=== PATIENT | male | born 1960 | race Caucasian/White ===

== ENCOUNTER 2017-04-25 10:01 | Day surgery (SDC) | payer OTHER, BC ==
[~2017-04-25] VITALS: Ht 175.3 cm; Wt 98.9 kg
[~2017-04-25 10:01] MED LIST: CEPH500 PO; FLAX PO; GLIP5 PO; Glucophage1000 MG PO; INSULANPEN SC; LISI20 PO; MAGNESIUM250 MG PO; METO25; Multiple Vitam1 EAC1 PO; Omeprazole20 M1; POTASSIUM99 MG PO
== END 2017-04-25 15:05 | disposition home or self-care (01) ==
LOC: ORSCSDS 10:01
PROVIDERS: Podiatrist Foot & Ankle Surgery
PROC: 0LQW0ZZ Repair Left Foot Tendon, Open Approach (ICD-10-PCS; principal; 2017-04-25 11:30)
DX: M66.372 Spontaneous rupture of flexor tendons, left ankle and foot (principal); I10 Essential (primary) hypertension; E11.9 Type 2 diabetes mellitus without complications; G47.33 Obstructive sleep apnea (adult) (pediatric); Z87.891 Personal history of nicotine dependence; Z79.899 Other long term (current) drug therapy
CPT/HCPCS: 82947; J0171; J0330; J0690; J1815; J1817; J2250; J2405; J3010; J7120

== ENCOUNTER 2018-05-04 11:13 | Day surgery (SDC) | payer OTHER, BC ==
[~2018-05-04] VITALS: Ht 172.7 cm; Wt 98.8 kg
[~2018-05-04 11:13] MED LIST changes: +GABA300 PO; +Lovastatin40 MG PO
--- NOTE | 2018-05-04 12:12 | NUR ---
05/04/18 1212 Amber Banda PT EDUCATION COMPLETED WITH PT AND . BOTH DENY QUESTIONS AT THIS TIME. CALL LIGHT IN REACH, BED IN LOWEST POSITION
--- NOTE | 2018-05-04 12:58 | NUR ---
05/04/18 1258 Jony Santo A LARGE ABRASION NOTED ON FRONT OF RIGHT CALF IN PRE OP. DR TERAN AWARE.
--- NOTE | 2018-05-04 14:10 | NUR ---
05/04/18 1410 Stacy Ch VSS. PT TOLERATING PO INTAKE WELL. PT C/O 10/14 PAIN ON RIGHT ANKLE (RIGHT SIDE AND UNDERNEATH) PRIMARILY. MEDICATED PER ORDERS. WILL GIVE PO MEDS ONCE PT FINISHES HIS PO COOKIES. DRESSING CDI. RT LIMB ELEVATED WITH ICE PACK UNDER RIGHT CALF. AT CHAIRSIDE.
== END 2018-05-04 14:40 | disposition home or self-care (01) ==
LOC: ORSCSDS 11:13
PROVIDERS: Podiatrist Foot & Ankle Surgery
PROC: 0MQQ4ZZ Repair Right Ankle Bursa and Ligament, Percutaneous Endoscopic Approach (ICD-10-PCS; principal; 2018-05-04 12:30)
PROC: 0SBF4ZZ Excision of Right Ankle Joint, Percutaneous Endoscopic Approach (ICD-10-PCS; principal; 2018-05-04 12:30)
DX: S93.491A Sprain of other ligament of right ankle, initial encounter (principal); M25.371 Other instability, right ankle; E11.9 Type 2 diabetes mellitus without complications; I10 Essential (primary) hypertension; E78.00 Pure hypercholesterolemia, unspecified; Z79.4 Long term (current) use of insulin; Z79.899 Other long term (current) drug therapy
CPT/HCPCS: 36415; 82607; 82746; 82947; C1713; J0171; J0690; J1100; J1885; J2250; J2405; J3010; J7120

== ENCOUNTER 2018-08-07 08:29 | Day surgery (SDC) | payer BC, OTHER ==
[~2018-08-07] VITALS: Ht 175.3 cm; Wt 100.4 kg
[2018-08-07] MEDS ORDERED: JARDIANCE25 MG PO (09:08)
[2018-08-07] MEDS ORDERED: TRULICITY1.5 MG/0.5 SC (09:09)
== END 2018-08-07 10:25 | disposition home or self-care (01) ==
LOC: ORSCSDS 08:29
PROVIDERS: Internal Medicine Gastroenterology
PROC: 0DBM8ZX Excision of Descending Colon, Via Natural or Artificial Opening Endoscopic, Diagnostic (ICD-10-PCS; principal; 2018-08-07 09:45)
PROC: 0DBP8ZX Excision of Rectum, Via Natural or Artificial Opening Endoscopic, Diagnostic (ICD-10-PCS; principal; 2018-08-07 09:45)
PROC: 0DBL8ZX Excision of Transverse Colon, Via Natural or Artificial Opening Endoscopic, Diagnostic (ICD-10-PCS; principal; 2018-08-07 09:45)
DX: Z85.038 Personal history of other malignant neoplasm of large intestine (principal); Z12.11 Encounter for screening for malignant neoplasm of colon; D12.4 Benign neoplasm of descending colon; D12.3 Benign neoplasm of transverse colon; K62.1 Rectal polyp; K57.30 Diverticulosis of large intestine without perforation or abscess without bleeding; K64.8 Other hemorrhoids; I10 Essential (primary) hypertension; G47.33 Obstructive sleep apnea (adult) (pediatric); E11.9 Type 2 diabetes mellitus without complications; Z79.899 Other long term (current) drug therapy
CPT/HCPCS: 82947; 88305; J2250; J2704; J7120

== ENCOUNTER 2018-08-12 14:08 | Emergency (ER) | payer BC, OTHER ==
[~2018-08-12] VITALS: Ht 172.7 cm; Wt 99.3 kg
[~2018-08-12 14:08] MED LIST changes: +JARDIANCE25 MG PO; +TRULICITY1.5 MG/0.5 SC
[2018-08-12 15:03] LABS: Source, Urine Clean Catch
[2018-08-12 15:35] LABS: Bilirubin, Urine Neg (Neg); Blood, Urine 1+ (Neg); Glucose Qualitative, Urine 4+ (Neg); Ketones, Urine 4+ (Neg); Leukocyte Esterase, Urine Neg (Neg); Nitrite, Urine Neg (Neg); Protein, Urine 2+ (Neg); Specific Gravity, Urine 1.025 (1.003-1.022); Urobilinogen, Urine NORM (Normal)
[2018-08-12 15:37] LABS: Appearance, Urine Hazy (Clear); Color, Urine Yellow (P-Yellow)
[2018-08-12 15:38] LABS: Squamous Epithelial Cells Rare /hpf (Few)
[2018-08-12 15:39] LABS: Bacteria Rare /hpf; Red Blood Cells, Urine 0-2 /hpf (0-2); White Blood Cells, Urine 0-2 /hpf (0-5)
[2018-08-12 16:08] LABS: BASOPHILS ABSOLUTE AUTO 0.05 K/mm3 (0.00-0.23); BASOPHILS PERCENT AUTO 1 % (0-2); EOSINOPHILS PERCENT AUTO 3 % (0-6); Hematocrit 47.9 % (37.0-53.0); IMMATURE GRAN ABSOLUTE AUTO 0.02 K/mm3 (0.00-0.10); IMMATURE GRAN PERCENT AUTO 0 % (0-1); LYMPHOCYTES ABSOLUTE AUTO 1.97 K/mm3 (0.84-5.20); LYMPHOCYTES PERCENT AUTO 27 % (21-46); MONOCYTES ABSOLUTE AUTO 0.57 K/mm3 (0.16-1.47); MONOCYTES PERCENT AUTO 8 % (4-13); Mean Corpuscular HGB 30.5 pg (26.0-34.0); Mean Corpuscular HGB Conc 33.4 g/dL (31.5-36.5); Mean Corpuscular Volume 91 fL (80-100); NEUTROPHILS ABSOLUTE AUTO 4.55 K/mm3 (1.96-9.15); NEUTROPHILS PERCENT AUTO 62 % (41-73); Platelet Count 141 K/mm3 (150-400); RDW Coefficient Variation 12.6 % (11.7-14.2); RDW Standard Deviation 42.1 fL (35.1-46.3); Red Blood Cell Count 5.24 M/mm3 (4.30-5.90); White Blood Cell Count 7.36 K/mm3 (4.00-11.30)
[2018-08-12 16:37] LABS: Alanine Aminotransfer (ALT/SGP 53 U/L (12-78); Albumin, Blood 4.2 g/dL (3.4-5.0); Alk Phos 62 U/L (50-136); Anion Gap 7 mmol/L (6-16); Aspartate Aminotrans (AST/SGOT 20 U/L (12-37); Bilirubin, Total 0.7 mg/dL (0.1-1.0); Blood Urea Nitrogen 29 mg/dL (8-24); Bun/Creatinine Ratio 37.5 (12.0-20.0); CO2, Blood 27 mmol/L (21-32); Calcium, Blood 9.9 mg/dL (8.5-10.1); Chloride, Blood 105 mmol/L (98-108); Creatinine, Blood 0.77 mg/dL (0.60-1.20); Globulin, Blood 4.1 g/dL (2.2-4.0); Glomerular Filtration Rate >60 (60-); Glucose, Blood 106 mg/dL (70-99); Potassium, Blood 4.3 mmol/L (3.5-5.5); Sodium, Blood 139 mmol/L (136-145); Total Protein, Blood 8.3 g/dL (6.4-8.2)
== END 2018-08-12 17:39 | disposition home or self-care (01) ==
LOC: ER 14:08
PROVIDERS: Physician Assistant
DX: G89.18 Other acute postprocedural pain (principal); R10.9 Unspecified abdominal pain; Z79.899 Other long term (current) drug therapy; Z79.4 Long term (current) use of insulin; Z87.891 Personal history of nicotine dependence
CPT/HCPCS: 36415; 74177; 80053; 81001; 83690; 85025; 99284-25; Q9967

== ENCOUNTER 2019-05-24 22:05 | Inpatient (IN) | payer BC, OTHER ==
[~2019-05-24] VITALS: Ht 172.7 cm; Wt 96.3 kg
[~2019-05-24 22:05] MED LIST changes: -METO25; +METO25 PO; +Medi-Meclizine25 MG PO; +PROM25 PO
[2019-05-24 22:36] LABS: BASOPHILS ABSOLUTE AUTO 0.03 K/mm3 (0.00-0.23); BASOPHILS PERCENT AUTO 0 % (0-2); EOSINOPHILS PERCENT AUTO 3 % (0-6); Hematocrit 44.8 % (37.0-53.0); Hemoglobin 14.9 g/dL (13.5-17.5); IMMATURE GRAN ABSOLUTE AUTO 0.04 K/mm3 (0.00-0.10); IMMATURE GRAN PERCENT AUTO 0 % (0-1); LYMPHOCYTES ABSOLUTE AUTO 0.94 K/mm3 (0.84-5.20); LYMPHOCYTES PERCENT AUTO 9 % (21-46); MONOCYTES ABSOLUTE AUTO 0.61 K/mm3 (0.16-1.47); MONOCYTES PERCENT AUTO 6 % (4-13); Mean Corpuscular HGB 29.6 pg (26.0-34.0); Mean Corpuscular HGB Conc 33.3 g/dL (31.5-36.5); Mean Corpuscular Volume 89 fL (80-100); Mean Platelet Volume 12.5 fL (9.1-12.4); NEUTROPHILS ABSOLUTE AUTO 8.73 K/mm3 (1.96-9.15); NEUTROPHILS PERCENT AUTO 82 % (41-73); Platelet Count 137 K/mm3 (150-400); RDW Coefficient Variation 12.7 % (11.7-14.2); RDW Standard Deviation 41.1 fL (35.1-46.3); Red Blood Cell Count 5.04 M/mm3 (4.30-5.90); White Blood Cell Count 10.65 K/mm3 (4.00-11.30)
[2019-05-24] MEDS ORDERED: TAMS.4ER PO (22:53)
[2019-05-24] MEDS ORDERED: TRESIBA100 UNIT/1 SC (22:54)
[2019-05-24 22:55] LABS: Alanine Aminotransfer (ALT/SGP 59 U/L (12-78); Albumin, Blood 3.9 g/dL (3.4-5.0); Alk Phos 55 U/L (50-136); Anion Gap 8 mmol/L (6-16); Aspartate Aminotrans (AST/SGOT 32 U/L (12-37); Bilirubin, Total 0.7 mg/dL (0.1-1.0); Blood Urea Nitrogen 18 mg/dL (8-24); Bun/Creatinine Ratio 31.8 (12.0-20.0); CO2, Blood 28 mmol/L (21-32); Calcium, Blood 9.2 mg/dL (8.5-10.1); Chloride, Blood 104 mmol/L (98-108); Creatinine, Blood 0.57 mg/dL (0.60-1.20); Globulin, Blood 3.8 g/dL (2.2-4.0); Glomerular Filtration Rate >60 (60-); Glucose, Blood 198 mg/dL (70-99); Potassium, Blood 4.1 mmol/L (3.5-5.5); Sodium, Blood 140 mmol/L (136-145); Total Protein, Blood 7.7 g/dL (6.4-8.2); Troponin I 0.027 ng/mL (0.000-0.040)
--- NOTE | 2019-05-25 03:00 | NUR ---
ADMIT NOTE: ADMIT 49 YO MALE TO ICU 9 PCU OBS STATUS BY [facility] VIA ER.TO HOSPITALIST DR PEDRAZA SERVICE . TRANSFER TO BED GAIT STEADY MONITOR PLACED SHOWING SINUS TADCH. HEART RATE 120'S. DENIES CHEST PAIN. LUNG SOUNDS CLEAR UPPER LOBES WITH DECREASED SOUNDS IN THE BASES HARSH NONPROODUCTIVE COUGH REQUEST UDN TX. DR MCCAIN NOTIFIED. ORDERS NOTED. ABDOMEN SOFT WITH BOWEL SOUNDS FOUR QUADS VOIDS WEI URINE PER URINAL GAIT STEADY. PEDAL PULSES PRESENT NO EDEMA NOTED. BLOOD CONSENT AND RELEASE OF INFORMATION COMPLETED. CONTINUE TO MONITOR AND REPORT CHANGE IN PATIENT CONDITION.
[2019-05-25 05:57] LABS: Hematocrit 43.3 % (37.0-53.0); Mean Corpuscular HGB 28.7 pg (26.0-34.0); Mean Corpuscular HGB Conc 32.3 g/dL (31.5-36.5); Mean Corpuscular Volume 89 fL (80-100); Mean Platelet Volume 12.9 fL (9.1-12.4); Platelet Count 109 K/mm3 (150-400); RDW Coefficient Variation 12.6 % (11.7-14.2); RDW Standard Deviation 41.3 fL (35.1-46.3); Red Blood Cell Count 4.87 M/mm3 (4.30-5.90); White Blood Cell Count 7.29 K/mm3 (4.00-11.30)
[2019-05-25 06:19] LABS: Alanine Aminotransfer (ALT/SGP 60 U/L (12-78); Albumin, Blood 3.7 g/dL (3.4-5.0); Albumin/Globulin Ratio 1.1 (0.8-1.8); Alk Phos 46 U/L (50-136); Anion Gap 6 mmol/L (6-16); Aspartate Aminotrans (AST/SGOT 33 U/L (12-37); Bilirubin, Total 1.1 mg/dL (0.1-1.0); Blood Urea Nitrogen 14 mg/dL (8-24); Bun/Creatinine Ratio 27.2 (12.0-20.0); CO2, Blood 30 mmol/L (21-32); Calcium, Blood 9.1 mg/dL (8.5-10.1); Chloride, Blood 105 mmol/L (98-108); Creatinine, Blood 0.52 mg/dL (0.60-1.20); Globulin, Blood 3.3 g/dL (2.2-4.0); Glomerular Filtration Rate >60 (60-); Glucose, Blood 189 mg/dL (70-99); Potassium, Blood 4.1 mmol/L (3.5-5.5); Sodium, Blood 141 mmol/L (136-145)
[2019-05-25 06:22] LABS: Troponin I 0.048 ng/mL (0.000-0.040)
--- NOTE | 2019-05-25 06:26 | NUR ---
SHIFAT SUMMARY: RESTS QUIETLY WHEN UNDISTURBED. MONITOR INTACT SHOWING SINUS TACH. HEART RATE 100'S-120'S. FREQ NON PRODUCTIVE HARSH COUGH. ABOMEN SOFT WITH BOWELSOUNDS FOUR QUADS. VOIDS WEI URINE PER URIANAL GAIT STEADY IN ROOM . CONTINUE TO MONITOR AND REPORT CHANGE IN PATIENT CONDITION. DISCUSSED BEDSIDE REPORT WITH PT STATES "JUST LET ME SLEEP IF I AM ASLEEP"
[2019-05-25 07:36] LABS: Adenovirus Not Detected (NOT DETECT); Bordetella pertussis Not Detected (NOT DETECT); Chlamydophila pneumoniae Not Detected (NOT DETECT); Coronavirus 229E Not Detected (NOT DETECT); Coronavirus HKU1 Not Detected (NOT DETECT); Coronavirus NL63 Not Detected (NOT DETECT); Coronavirus OC43 Not Detected (NOT DETECT); Human Metapneumovirus Not Detected (NOT DETECT); Human Rhinovirus/Enterovirus Not Detected (NOT DETECT); Influenza A Not Detected (NOT DETECT); Influenza A/2009-H1 Detected (NOT DETECT); Influenza A/H1 Not Detected (NOT DETECT); Influenza A/H3 Not Detected (NOT DETECT); Influenza B Not Detected (NOT DETECT); Mycoplasma pneumoniae Not Detected (NOT DETECT); Parainfluenza Virus 1 Not Detected (NOT DETECT); Parainfluenza Virus 2 Not Detected (NOT DETECT); Parainfluenza Virus 3 Not Detected (NOT DETECT); Parainfluenza Virus 4 Not Detected (NOT DETECT); Respiratory Syncytial Virus Not Detected (NOT DETECT)
--- NOTE | 2019-05-25 12:00 | NUR ---
PT UPDATE PT CALM AND COOPERATIVE AND FOLLOWING ALL COMMANDS AND SALCIDO. VSS, TELE REMAINS IN NSR, PALP PULSES T/O, RA WITH SATS IN MID 90S. COURSE AND DIM BILAT WITH LOUD STRONG NON PROD COUGH, NO S/S OF RESP DISTRESS. PT AMBULATORY TO BATHROOM AND USES URINAL WITH DARK CLEAR WEI URINE. WILL CONT TO MONITOR AND D/C TO HOME TOMM PER MD ORDER.
[2019-05-25 14:14] LABS: Troponin I 0.073 ng/mL (0.000-0.040)
[2019-05-25 14:29] LABS: Creatine Kinase MB 10.5 ng/mL (0.0-3.6); Creatine Kinase MB Index 2.1 (0.0-4.0)
--- NOTE | 2019-05-25 20:00 | NUR ---
PATIENT RESTING QUIETLY IN BED AWAKENS TO SLIGHT STIMULI. WOODROW PAIN AT THIS TIME, OCCASIONAL HARSH NONPRODUCTIVE COUGH. OXYGEN 2L/NC
--- NOTE | 2019-05-25 22:57 | NUR ---
PATIENT CONTINUES TO SLEEP WHEN UNDISTURBED, AT TIMES UP TO TOILET WITHOUT DIFFICULTY. TAKING PO MEDICATIONS WITHOUT DIFFICULTY. PATIENT VERBALIZED THAT HE IS READY TO GO HOME.
--- NOTE | 2019-05-26 04:52 | NUR ---
PATIENT AWAKE, C/O FEELING IF HE CAN'T GET A DEEP BREATH. LUNG SOUNDS REMAIN DECREASED T/O. RT CALLED AND UDN TX GIVEN.
--- NOTE | 2019-05-26 06:43 | NUR ---
SUMMARY PATIENT VERBALIZED HE IS FEELING BETTER AND IS WANTING TO GO HOME AND SLEEP IN HIS OWN BED. VERBALIZED THAT HAD GOOD RELIEF OF SOB WITH UDN TREATMENT. UP IN ROOM WITHOUT DIFFICULTY.
--- NOTE | 2019-05-26 07:44 | NUR ---
ASSUMED CARE: RECEIVED BEDSIDE REPORT FROM NOC RN. PT UP IN ROOM AT THE TOILET INDEPENDENTLY. PT DENIES PAIN AT THIS TIME. NO SHORTNESS OF BREATH OR COUGHING NOTED. NO RESPRATORY DISTRESS NOTED. WILL CONTINUE TO MONITOR AND ASSESS FURTHER. CALL LIGHT IN REACH.
--- NOTE | 2019-05-26 08:28 | NUR ---
OXYGEN NEEDS: PT HAS BEEN ON 2L O2 VIA NC T/O THE NIGHT SATTING >90%. TOOK PT OFF NC IN PREPARATION OF DISCHARGE AND PT DESAT DOWN TO 86% AT THE LOWEST PT WAS UNABLE TO BRING HIS O2 SATS BACK UP WITHOUT PLACING HIM BACK ON O2. LUNG SOUNDS ARE VERY DIMINISHED T/O.
--- NOTE | 2019-05-26 17:24 | NUR ---
SHIFT SUMMARY: PT HAS BEEN RESTING OFF AND ON T/O THE DAY. HE WAS ABLE TO TAKE A SHOWER WITH O2 RUNNING WHILE HE SHOWERED. PT TAKEN OFF OF O2 FOR A SHORT TIME, BUT PT WAS UNABLE TO TOLLERATE AND KEEP HIS O2 SATURATIONS >90%. PT HAS HAD A FEW EPPISODES OF COUGHING, COUGH MED GIVEN PER ORDERS. CALL LIGHT IN REACH PT INDEPENDENT IN THE ROOM.
--- NOTE | 2019-05-26 18:41 | NUR ---
INSULIN: CALLED AND NOTIFIED [facility]. RECEIVED ORDER TO INCREASED SLIDING SCALE TO MED.
--- NOTE | 2019-05-26 19:24 | NUR ---
PT ARRIVED TO ROOM VIA WHEELCHAIR FROM ICU AT 1850. PT AMBULATED SELF TO BED. STATES NO DISTRESS. CALL LITE IN REACH, BED IN LOW POSITION, CALL LITE IN REACH, CALLS APPROP
[2019-05-27] MEDS ORDERED: TESSALON PERLE100 MG PO (11:39)
[2019-05-27] MEDS ORDERED: PRED10 PO (11:44)
[2019-05-27] MEDS ORDERED: OSEL75CA PO (11:45)
[2019-05-27] MEDS ORDERED: Ventolin/Prove6.7 GM INH (11:47)
--- NOTE | 2019-05-27 12:15 | NUR ---
PATIENT DC'D TO HOME WITH FAMILY. VSS, ON RA. RX MEDICATIONS FAXED TO [facility]. DC INSTRUCTIONS AND EDUCATIONS DISCUSSED WITH PATIENT AND COPY PROVIDED. PATIENT DENIES ANY FURTHER QUESTIONS OR CONCERNS.
== END 2019-05-27 12:13 | disposition home or self-care (01) | DRG 193 ==
LOC: ER 22:05 → ICUW 22:06 → ER 05-25 00:46 → ICUW 05-25 00:46 → ERHOLD 05-25 00:46 → ICUW 05-25 03:00 → ERHOLD 05-25 03:00 → ICUW 05-25 03:01 → MEDS 05-26 18:55
PROVIDERS: Emergency Medicine; ADMIT Internal Medicine
DX: J10.1 Influenza due to other identified influenza virus with other respiratory manifestations (principal); J96.01 Acute respiratory failure with hypoxia; J98.59 Other diseases of mediastinum, not elsewhere classified; J45.901 Unspecified asthma with (acute) exacerbation; I24.8 Other forms of acute ischemic heart disease; E11.9 Type 2 diabetes mellitus without complications; J20.9 Acute bronchitis, unspecified; K21.9 Gastro-esophageal reflux disease without esophagitis; I10 Essential (primary) hypertension; N40.0 Benign prostatic hyperplasia without lower urinary tract symptoms; G62.9 Polyneuropathy, unspecified; E66.9 Obesity, unspecified; Z79.4 Long term (current) use of insulin; Z68.33 Body mass index [BMI] 33.0-33.9, adult
CPT/HCPCS: 0099U; 36415; 71045; 71260; 80053; 82550; 82553; 82947; 83605; 83690; 83880; 84145; 84484; 85025; 85027; 87040; 93005; 93010; 93306; 94640; 94760; 96372; 96374; 96376; 99285-25; A9270-GY; G0378; J1650; J2250; J2930; Q9967

== ENCOUNTER → 2022-04-10 | Outpatient (CLI) | payer OTHER ==
[~2022-04-10] MED LIST changes: +OSEL75CA PO; +PRED10 PO; +TAMS.4ER PO; +TESSALON PERLE100 MG PO; +TRESIBA100 UNIT/1 SC; +Ventolin/Prove6.7 GM INH
[2022-04-10 08:40] LABS: BASOPHILS ABSOLUTE AUTO 0.02 K/mm3 (0.00-0.23); BASOPHILS PERCENT AUTO 0 % (0-2); EOSINOPHILS ABSOLUTE AUTO 0.11 K/mm3 (0.00-0.68); EOSINOPHILS PERCENT AUTO 2 % (0-6); Hematocrit 46.1 % (37.0-53.0); Hemoglobin 15.4 g/dL (13.5-17.5); IMMATURE GRAN ABSOLUTE AUTO 0.03 K/mm3 (0.00-0.10); IMMATURE GRAN PERCENT AUTO 1 % (0-1); LYMPHOCYTES ABSOLUTE AUTO 1.05 K/mm3 (0.84-5.20); LYMPHOCYTES PERCENT AUTO 17 % (21-46); MONOCYTES ABSOLUTE AUTO 0.48 K/mm3 (0.16-1.47); MONOCYTES PERCENT AUTO 8 % (4-13); Mean Corpuscular HGB 30.1 pg (26.0-34.0); Mean Corpuscular HGB Conc 33.4 g/dL (31.5-36.5); Mean Corpuscular Volume 90 fL (80-100); Mean Platelet Volume 12.9 fL (9.1-12.4); NEUTROPHILS ABSOLUTE AUTO 4.52 K/mm3 (1.96-9.15); NEUTROPHILS PERCENT AUTO 73 % (41-73); Platelet Count 123 K/mm3 (150-400); RDW Coefficient Variation 13.2 % (11.7-14.2); RDW Standard Deviation 43.5 fL (35.1-46.3); Red Blood Cell Count 5.11 M/mm3 (4.30-5.90); White Blood Cell Count 6.21 K/mm3 (4.00-11.30)
[2022-04-10 08:46] LABS: Bun/Creatinine Ratio 19.5 (12.0-20.0); Calcium, Blood 9.2 mg/dL (8.5-10.1); Creatinine, Blood 0.82 mg/dL (0.60-1.20); Potassium, Blood 4.2 mmol/L (3.5-5.5)
== END | disposition home or self-care (01) ==
LOC: LAB SHORT 08:36
PROVIDERS: Physician Assistant Surgical
DX: R06.00 Dyspnea, unspecified (principal)
CPT/HCPCS: 80048; 83880; 84484; 85025; 85379

== ENCOUNTER 2022-12-03 11:18 | Day surgery (SDC) | payer BC, MEDICARE ==
[~2022-12-03] VITALS: Ht 152.4 cm; Wt 105.7 kg
[2022-12-03] MEDS ORDERED: PIOG15 (11:46)
[2022-12-03] MEDS ORDERED: ASPI81CH (11:46)
[2022-12-03] MEDS ORDERED: GLIM2 (11:46)
[2022-12-03] MEDS ORDERED: GABA100 (11:46)
[2022-12-03] MEDS ORDERED: Crestor20 MG (11:47)
[2022-12-03 14:54] VITALS: BP 133/68
== END 2022-12-03 13:05 | disposition home or self-care (01) ==
LOC: ORSCSDS 11:18
PROVIDERS: Internal Medicine Gastroenterology
PROC: 0DBM8ZX Excision of Descending Colon, Via Natural or Artificial Opening Endoscopic, Diagnostic (ICD-10-PCS; principal; 2022-12-03 12:30)
PROC: 0DBK8ZX Excision of Ascending Colon, Via Natural or Artificial Opening Endoscopic, Diagnostic (ICD-10-PCS; principal; 2022-12-03 12:30)
DX: Z12.11 Encounter for screening for malignant neoplasm of colon (principal); D12.2 Benign neoplasm of ascending colon; D12.4 Benign neoplasm of descending colon; Z86.010 Personal history of colon polyps; K64.8 Other hemorrhoids; K57.30 Diverticulosis of large intestine without perforation or abscess without bleeding; E11.9 Type 2 diabetes mellitus without complications; K21.9 Gastro-esophageal reflux disease without esophagitis; R06.02 Shortness of breath; G47.33 Obstructive sleep apnea (adult) (pediatric); J44.9 Chronic obstructive pulmonary disease, unspecified; E66.01 Morbid (severe) obesity due to excess calories; F17.210 Nicotine dependence, cigarettes, uncomplicated; Z68.42 Body mass index [BMI] 45.0-49.9, adult; Z79.85 Long-term (current) use of injectable non-insulin antidiabetic drugs; Z79.82 Long term (current) use of aspirin; Z79.899 Other long term (current) drug therapy
CPT/HCPCS: 82947; 88305; J2704; J7120

== ENCOUNTER 2023-11-03 03:20 | Observation (INO) | payer BC, MEDICARE ==
[~2023-11-03] VITALS: Ht 175.3 cm; Wt 99.5 kg
[~2023-11-03 03:20] MED LIST changes: +ASPI81CH PO; +Crestor40 MG PO; +GABA100; +GLIM2; +PIOG15 PO
[2023-11-03] MEDS ORDERED: Ipratropium/Albuterol SulF 2.5-0.5MG/3 ML Amp INH ONE (03:30)
[2023-11-03] MEDS ORDERED: PredniSONE 20 MG Tab PO ONE (03:30)
[2023-11-03] MEDS ORDERED: Mag Sulfate 1 GM/D5% 100ML 100 ML IV ONE (03:30)
[2023-11-03] MEDS ORDERED: Albuterol 2.5 MG/3 ML VIAL INH SCH ×2 (03:30→05:00)
[2023-11-03 04:02] LABS: BASOPHILS ABSOLUTE AUTO 0.04 K/mm3 (0.00-0.23); BASOPHILS PERCENT AUTO 1 % (0-2); EOSINOPHILS ABSOLUTE AUTO 0.17 K/mm3 (0.00-0.68); EOSINOPHILS PERCENT AUTO 2 % (0-6); Hematocrit 42.3 % (37.0-53.0); Hemoglobin 14.4 g/dL (13.5-17.5); IMMATURE GRAN ABSOLUTE AUTO 0.04 K/mm3 (0.00-0.10); IMMATURE GRAN PERCENT AUTO 1 % (0-1); LYMPHOCYTES ABSOLUTE AUTO 0.96 K/mm3 (0.84-5.20); LYMPHOCYTES PERCENT AUTO 13 % (21-46); MONOCYTES ABSOLUTE AUTO 0.58 K/mm3 (0.16-1.47); MONOCYTES PERCENT AUTO 8 % (4-13); Mean Corpuscular HGB 29.9 pg (26.0-34.0); Mean Corpuscular Volume 88 fL (80-100); NEUTROPHILS PERCENT AUTO 77 % (41-73); Platelet Count 130 K/mm3 (150-400); RDW Coefficient Variation 12.8 % (11.7-14.2); RDW Standard Deviation 40.9 fL (35.1-46.3); Red Blood Cell Count 4.82 M/mm3 (4.30-5.90); White Blood Cell Count 7.59 K/mm3 (4.00-11.30)
[2023-11-03 04:04] LABS: Mean Platelet Volume 13.3 fL (9.1-12.4)
[2023-11-03 04:13] LABS: Albumin, Blood 3.5 g/dL (3.4-5.0); Bilirubin, Total 2.6 mg/dL (0.1-1.0); Bun/Creatinine Ratio 27.8 (12.0-20.0); Calcium, Blood 8.9 mg/dL (8.5-10.1); Creatinine, Blood 0.65 mg/dL (0.60-1.20); Globulin, Blood 3.6 g/dL (2.2-4.0); Potassium, Blood 3.7 mmol/L (3.5-5.5); Total Protein, Blood 7.1 g/dL (6.4-8.2)
[2023-11-03] MEDS ORDERED: Doxycycline Hyclate 100 MG TAB PO ONE (04:45)
[2023-11-03] MEDS ORDERED: Ondansetron HCl 2 MG / ML 2ML Vial IV PRN (05:05)
[2023-11-03] MEDS ORDERED: Ipratropium/Albuterol SulF 2.5-0.5MG/3 ML Amp INH PRN (05:10)
[2023-11-03] MEDS ORDERED: MethylPREDNISolone Sod Succ 125 MG Vial IV SCH (06:00)
[2023-11-03 06:47] LABS: Adenovirus Not Detected (NOT DETECT); Bordetella pertussis Not Detected (NOT DETECT); Chlamydophila pneumoniae Not Detected (NOT DETECT); Coronavirus 229E Not Detected (NOT DETECT); Coronavirus HKU1 Not Detected (NOT DETECT); Coronavirus NL63 Not Detected (NOT DETECT); Coronavirus OC43 Not Detected (NOT DETECT); Human Metapneumovirus Not Detected (NOT DETECT); Human Rhinovirus/Enterovirus Not Detected (NOT DETECT); Influenza A/2009-H1 Not Detected (NOT DETECT); Influenza A/H1 Not Detected (NOT DETECT); Influenza A/H3 Not Detected (NOT DETECT); Influenza B Not Detected (NOT DETECT); Mycoplasma pneumoniae Not Detected (NOT DETECT); Parainfluenza Virus 1 Not Detected (NOT DETECT); Parainfluenza Virus 2 Not Detected (NOT DETECT); Parainfluenza Virus 3 Not Detected (NOT DETECT); Parainfluenza Virus 4 Not Detected (NOT DETECT); Respiratory Syncytial Virus Not Detected (NOT DETECT); SARS-Cov-2 (COVID-19), BioFire Not Detected (NOT DETECT)
[2023-11-03] MEDS ORDERED: Enoxaparin 40 MG/0.4 ML SYR SC SCH (09:00)
[2023-11-03] MEDS ORDERED: Doxycycline Hyclate 100 MG in Dextrose 5% 250 ML IV SCH (09:00)
[2023-11-03 09:56] VITALS: BP 173/96
[2023-11-03] MEDS ORDERED: OZEMPIC2 MG/0.75 SC (10:51)
[2023-11-03] MEDS ORDERED: HYDROmorphone HCl/Pf 1MG SYR IV PRN (11:00)
[2023-11-03] MEDS ORDERED: OXYB5 PO (11:13)
[2023-11-03] MEDS ORDERED: STIOLTO RESPIMAT4 G1 INH (11:14)
[2023-11-03] MEDS ORDERED: INSULIN GL300 UNIT/2 SC (11:15)
[2023-11-03] MEDS ORDERED: OMEGA-3 FISH O1 EA21 PO (11:16)
[2023-11-03] MEDS ORDERED: Furosemide 10 MG / ML 2ML Vial IV ONE (12:00)
[2023-11-03 15:45] VITALS: BP 180/100
[2023-11-03] MEDS ORDERED: Insulin Human Lispro 100 Units/ML 3ML Syringe SC SCH (16:30)
[2023-11-03] MEDS ORDERED: HydrALAZINE HCl 20 MG / ML 1ML Vial IV PRN ×2 (16:40→18:30)
[2023-11-03 18:06] VITALS: BP 184/102
--- NOTE | 2023-11-03 18:24 | NUR ---
THIS RN CALLED TO PT ROOM DUE TO PT C/O SOB AND DIFFICULTY BREATHING OUT. MD NOTIFIED OF ABNORMAL VITAL SIGNS ALONG WITH SYMPTOMS. DR. PUGA AT BEDSIDE. PLEASE SEE NEW ORDERS.
[2023-11-03] MEDS ORDERED: Metoprolol Tartrate 1 MG/ML 5 ML VIAL IV PRN (18:30)
[2023-11-03 18:44] LABS: Base Excess Venous -2.9 mmol/L; Bicarbonate Venous 22.8 mmol/L (24.0-30.0); PCO2 Venous 30.9 mmHg (38-42); pH Blood Venous 7.44 (7.34-7.37)
--- NOTE | 2023-11-03 19:49 | NUR ---
DISCUSSED PT WITH STATION MECHANIC APPRENTICE. DR. MCCAIN NOTIFIED. AT BEDSIDE NOW. PE STUDY ORDERED RULE OUT.
[2023-11-03] MEDS ORDERED: Insulin Glargine-Yfgn 100 Unit/mL 3 ML SYR SC SCH (21:00)
[2023-11-03] MEDS ORDERED: Omega-3 Acid Ethyl Esters 1,000 MG CAP PO SCH (21:00)
[2023-11-03] MEDS ORDERED: oxyBUTYnin chloride 5 MG TAB PO SCH (21:00)
[2023-11-03] MEDS ORDERED: Gabapentin 300 MG Cap PO SCH (21:00)
[2023-11-03] MEDS ORDERED: Rosuvastatin Calcium 10 MG Tab PO SCH (21:00)
[2023-11-03] MEDS ORDERED: Metoprolol Tartrate 25 MG Tab PO SCH (21:00)
[2023-11-03] MEDS ORDERED: Ibuprofen 400 MG Tab PO PRN (22:55)
[2023-11-04 03:17] VITALS: BP 163/93
--- NOTE | 2023-11-04 05:27 | NUR ---
SHIFT SUMMARY AFTER EPISODE OF SOB AT CHANGE OF SHIFT, NO FURTHER SOB EVENTS TONIGHT. CT WAS DONE RESULTS ON CHART. TELE SR 93. GIVEN IBUPROPHEN FOR HEADACHE. BP 163/93 DID NOT QUITE HIT PARAMETER FOR PRN ANTIHYPERTENSIVE.
[2023-11-04 05:46] LABS: BASOPHILS ABSOLUTE AUTO 0.01 K/mm3 (0.00-0.23); BASOPHILS PERCENT AUTO 0 % (0-2); EOSINOPHILS PERCENT AUTO 0 % (0-6); Hematocrit 40.8 % (37.0-53.0); Hemoglobin 13.7 g/dL (13.5-17.5); IMMATURE GRAN ABSOLUTE AUTO 0.07 K/mm3 (0.00-0.10); IMMATURE GRAN PERCENT AUTO 1 % (0-1); LYMPHOCYTES ABSOLUTE AUTO 0.51 K/mm3 (0.84-5.20); LYMPHOCYTES PERCENT AUTO 6 % (21-46); MONOCYTES ABSOLUTE AUTO 0.25 K/mm3 (0.16-1.47); MONOCYTES PERCENT AUTO 3 % (4-13); Mean Corpuscular HGB 29.3 pg (26.0-34.0); Mean Corpuscular HGB Conc 33.6 g/dL (31.5-36.5); Mean Corpuscular Volume 87 fL (80-100); NEUTROPHILS ABSOLUTE AUTO 8.11 K/mm3 (1.96-9.15); NEUTROPHILS PERCENT AUTO 91 % (41-73); Platelet Count 143 K/mm3 (150-400); RDW Coefficient Variation 13.2 % (11.7-14.2); RDW Standard Deviation 41.6 fL (35.1-46.3); Red Blood Cell Count 4.67 M/mm3 (4.30-5.90); White Blood Cell Count 8.95 K/mm3 (4.00-11.30)
[2023-11-04] MEDS ORDERED: Omeprazole 20 MG CapCR PO SCH (06:00)
[2023-11-04 06:08] LABS: Albumin, Blood 3.4 g/dL (3.4-5.0); Bilirubin, Total 2.5 mg/dL (0.1-1.0); Bun/Creatinine Ratio 48.5 (12.0-20.0); Calcium, Blood 9.1 mg/dL (8.5-10.1); Creatinine, Blood 0.62 mg/dL (0.60-1.20); Globulin, Blood 3.4 g/dL (2.2-4.0); Potassium, Blood 3.9 mmol/L (3.5-5.5); Total Protein, Blood 6.8 g/dL (6.4-8.2)
[2023-11-04 07:04] VITALS: BP 151/81
[2023-11-04] MEDS ORDERED: Multivitamins/Minerals TAB PO SCH (09:00)
[2023-11-04] MEDS ORDERED: Lisinopril 20 MG Tab PO SCH (09:00)
[2023-11-04] MEDS ORDERED: Misc. Inhaler INH SCH (09:00)
[2023-11-04] MEDS ORDERED: Empagliflozin 25 MG TAB PO SCH (09:00)
[2023-11-04] MEDS ORDERED: MethylPREDNISolone Sod Succ 125 MG Vial IV SCH ×2 (09:00→21:00)
[2023-11-04] MEDS ORDERED: Aspirin 81 MG Chew PO SCH (09:00)
[2023-11-04] MEDS ORDERED: Furosemide 20 MG Tab PO SCH (11:00)
--- NOTE | 2023-11-04 14:43 | NUR ---
SHIFT SUMMARY PT AWAKE AT START OF SHIFT. ABLE TO SIT UP TO EOB AND THEN AMBULATE TO BTHRM INDEPENDENTLY. PT REPORTING THAT HE FEELS MUCH BETTER TODAY AND READY TO GO HOME IF POSSIBLE. ADMITTED FOR COPD EXAC. PT NOW ON RA. USING CPAP DURING THE NIGHT. NO O2 NEEDED. SR ON TELE. DR PUGA IN TO SEE PT AND DISCUSS PLAN OF CARE. POSSIBLE D/C TO [facility]OMEE TODAY. MEDICATIONS ADJUSTED. IN TO VISIT AT BS. DENIES FURTHER NEEDS. CALL LT IN REACH.
[2023-11-04] MEDS ORDERED: FURO20 PO (16:13)
[2023-11-04] MEDS ORDERED: PRED20 PO (16:14)
--- NOTE | 2023-11-04 17:14 | NUR ---
PT ABLE TO D/C TO HOME. DR PUGA IN TO REVIEW D/C ORDERS AND PLAN OF CARE. PT VERBALIZED UNDERSTANDING. PT AND BELONGINGS TAKEN OUT VIA W/C BY FRONT SIGHT ATTACHER WITH FAMILY AT SIDE.
[2023-11-04] MEDS ORDERED: Insulin Glargine-Yfgn 100 Unit/mL 3 ML SYR SC SCH (21:00)
[2023-11-10] MEDS ORDERED: oxyBUTYnin chloride 5 MG TAB PO SCH (09:00)
== END 2023-11-04 16:54 | disposition home or self-care (01) ==
LOC: ER 03:20 → MEDS 03:21 → ERHOLD 03:21 → MEDS 09:42
PROVIDERS: Family Medicine; Student in an Organized Health Care Education/Training Program; ADMIT Internal Medicine
DX: J44.1 Chronic obstructive pulmonary disease with (acute) exacerbation (principal); I11.0 Hypertensive heart disease with heart failure; I50.30 Unspecified diastolic (congestive) heart failure; I27.20 Pulmonary hypertension, unspecified; E11.40 Type 2 diabetes mellitus with diabetic neuropathy, unspecified; N40.0 Benign prostatic hyperplasia without lower urinary tract symptoms; J96.01 Acute respiratory failure with hypoxia; Z79.82 Long term (current) use of aspirin; Z79.899 Other long term (current) drug therapy; Z79.84 Long term (current) use of oral hypoglycemic drugs; Z79.4 Long term (current) use of insulin; Z99.81 Dependence on supplemental oxygen
CPT/HCPCS: 0202U; 36415; 71045; 71260; 80053; 82803; 82947; 83880; 84145; 85025; 93005; 93010; 94640; 94644; 94664; 94760; 94762; 96365; 96366; 96367; 96372; 96375; 96376; 99285-25; A9270; C8929; G0378; J0360; J1650; J1815; J1940; J2919; J3475; J7060; J7512; Q9957; Q9967

== ENCOUNTER 2023-11-23 16:10 | Emergency (ER) | payer BC, MEDICARE ==
[~2023-11-23] VITALS: Ht 175.3 cm; Wt 102.1 kg
[~2023-11-23 16:10] MED LIST changes: +FURO20 PO; +INSULIN GL300 UNIT/2 SC; +OMEGA-3 FISH O1 EA21 PO; +OXYB5 PO; +OZEMPIC2 MG/0.75 SC; +PRED20 PO; +STIOLTO RESPIMAT4 G1 INH
[2023-11-23 16:32] LABS: BASOPHILS ABSOLUTE AUTO 0.03 K/mm3 (0.00-0.23); BASOPHILS PERCENT AUTO 1 % (0-2); EOSINOPHILS ABSOLUTE AUTO 0.13 K/mm3 (0.00-0.68); EOSINOPHILS PERCENT AUTO 2 % (0-6); Hematocrit 39.5 % (37.0-53.0); Hemoglobin 12.8 g/dL (13.5-17.5); IMMATURE GRAN ABSOLUTE AUTO 0.02 K/mm3 (0.00-0.10); IMMATURE GRAN PERCENT AUTO 0 % (0-1); LYMPHOCYTES ABSOLUTE AUTO 1.07 K/mm3 (0.84-5.20); LYMPHOCYTES PERCENT AUTO 16 % (21-46); MONOCYTES ABSOLUTE AUTO 0.58 K/mm3 (0.16-1.47); MONOCYTES PERCENT AUTO 9 % (4-13); Mean Corpuscular HGB 28.8 pg (26.0-34.0); Mean Corpuscular HGB Conc 32.4 g/dL (31.5-36.5); Mean Corpuscular Volume 89 fL (80-100); Mean Platelet Volume 12.9 fL (9.1-12.4); NEUTROPHILS ABSOLUTE AUTO 4.69 K/mm3 (1.96-9.15); NEUTROPHILS PERCENT AUTO 72 % (41-73); Platelet Count 161 K/mm3 (150-400); RDW Coefficient Variation 13.6 % (11.7-14.2); RDW Standard Deviation 43.8 fL (35.1-46.3); Red Blood Cell Count 4.45 M/mm3 (4.30-5.90); White Blood Cell Count 6.52 K/mm3 (4.00-11.30)
[2023-11-23 17:11] LABS: Albumin, Blood 3.5 g/dL (3.4-5.0); Albumin/Globulin Ratio 1.1 (0.8-1.8); Bilirubin, Total 2.3 mg/dL (0.1-1.0); Bun/Creatinine Ratio 22.5 (12.0-20.0); Creatinine, Blood 0.93 mg/dL (0.60-1.20); Globulin, Blood 3.1 g/dL (2.2-4.0); Magnesium, Blood 1.8 mg/dL (1.6-2.4); Potassium, Blood 3.7 mmol/L (3.5-5.5); Total Protein, Blood 6.6 g/dL (6.4-8.2)
[2023-11-23 19:23] VITALS: BP 165/87
== END 2023-11-23 20:34 | disposition home or self-care (01) ==
LOC: ER 16:10
PROVIDERS: Physician Assistant
DX: R06.02 Shortness of breath (principal); R07.9 Chest pain, unspecified; K21.9 Gastro-esophageal reflux disease without esophagitis; E11.40 Type 2 diabetes mellitus with diabetic neuropathy, unspecified; J44.9 Chronic obstructive pulmonary disease, unspecified; I10 Essential (primary) hypertension; Z86.79 Personal history of other diseases of the circulatory system; Z87.891 Personal history of nicotine dependence; Z79.82 Long term (current) use of aspirin; Z79.4 Long term (current) use of insulin; Z79.52 Long term (current) use of systemic steroids; Z79.84 Long term (current) use of oral hypoglycemic drugs; Z79.899 Other long term (current) drug therapy
CPT/HCPCS: 71046; 80053; 83735; 84484; 85025; 93005; 93010; 99285-25

== ENCOUNTER 2024-07-10 16:26 | Inpatient (IN) | payer BC, MEDICARE ==
[~2024-07-10] VITALS: Ht 172.7 cm; Wt 90.6 kg
[2024-07-10 17:09] LABS: BASOPHILS ABSOLUTE AUTO 0.02 K/mm3 (0.00-0.23); BASOPHILS PERCENT AUTO 0 % (0-2); EOSINOPHILS ABSOLUTE AUTO 0.17 K/mm3 (0.00-0.68); EOSINOPHILS PERCENT AUTO 2 % (0-6); Hematocrit 35.4 % (37.0-53.0); Hemoglobin 11.5 g/dL (13.5-17.5); IMMATURE GRAN ABSOLUTE AUTO 0.04 K/mm3 (0.00-0.10); IMMATURE GRAN PERCENT AUTO 1 % (0-1); LYMPHOCYTES ABSOLUTE AUTO 0.86 K/mm3 (0.84-5.20); LYMPHOCYTES PERCENT AUTO 10 % (21-46); MONOCYTES ABSOLUTE AUTO 1.01 K/mm3 (0.16-1.47); MONOCYTES PERCENT AUTO 12 % (4-13); Mean Corpuscular HGB 27.6 pg (26.0-34.0); Mean Corpuscular HGB Conc 32.5 g/dL (31.5-36.5); Mean Corpuscular Volume 85 fL (80-100); Mean Platelet Volume 11.3 fL (9.1-12.4); NEUTROPHILS ABSOLUTE AUTO 6.16 K/mm3 (1.96-9.15); NEUTROPHILS PERCENT AUTO 75 % (41-73); Platelet Count 169 K/mm3 (150-400); RDW Coefficient Variation 18.5 % (11.7-14.2); RDW Standard Deviation 58.6 fL (35.1-46.3); Red Blood Cell Count 4.16 M/mm3 (4.30-5.90); White Blood Cell Count 8.26 K/mm3 (4.00-11.30)
[2024-07-10 17:26] LABS: Albumin, Blood 3.5 g/dL (3.4-5.0); Albumin/Globulin Ratio 0.9 (0.8-1.8); Bilirubin, Total 0.5 mg/dL (0.1-1.0); Bun/Creatinine Ratio 38.4 (12.0-20.0); Calcium, Blood 9.8 mg/dL (8.5-10.1); Creatinine, Blood 0.83 mg/dL (0.60-1.20); Globulin, Blood 3.9 g/dL (2.2-4.0); Potassium, Blood 4.6 mmol/L (3.5-5.5); Total Protein, Blood 7.4 g/dL (6.4-8.2)
[2024-07-10] MEDS ORDERED: CefTRIAXone Sodium 1,000 MG in NS 100 ML IV ONE (18:30)
[2024-07-10] MEDS ORDERED: Acetaminophen 500 MG Tab PO ONE (19:00)
[2024-07-10] MEDS ORDERED: OxyCODONE HCL 5 MG TAB PO ONE (19:00)
[2024-07-10] MEDS ORDERED: Ibuprofen 600 MG Tab PO ONE (19:00)
[2024-07-10] MEDS ORDERED: Lactated Ringer's 1,000 ML IV SCH ×3 (19:55→21:45)
[2024-07-10] MEDS ORDERED: Ketorolac Tromethamine 15mg Vial IV ONE (19:55)
[2024-07-10] MEDS ORDERED: OxyCODONE HCL 5 MG TAB PO PRN (21:35)
[2024-07-10] MEDS ORDERED: Ondansetron HCl 2 MG / ML 2ML Vial IV PRN (21:40)
[2024-07-10] MEDS ORDERED: Albuterol 2.5 MG/3 ML VIAL INH PRN (21:40)
[2024-07-10] MEDS ORDERED: Ipratropium/Albuterol SulF 2.5-0.5MG/3 ML Amp INH SCH (21:45)
[2024-07-10] MEDS ORDERED: Ketorolac Tromethamine 30mg Vial IV ONE (22:00)
[2024-07-10] MEDS ORDERED: Insulin Glargine-Yfgn 100 Unit/mL 3 ML SYR SC SCH (22:00)
[2024-07-10 23:04] VITALS: BP 115/56
[2024-07-11 01:14] LABS: Source, Urine Clean Catch
[2024-07-11 01:16] LABS: Bilirubin, Urine Neg (Neg); Blood, Urine 5+ (Neg); Glucose Qualitative, Urine 4+ (Neg); Ketones, Urine Neg (Neg); Leukocyte Esterase, Urine 3+ (Neg); Nitrite, Urine Neg (Neg); Protein, Urine 3+ (Neg); Specific Gravity, Urine 1.015 (1.003-1.022); Urobilinogen, Urine NORM (Normal)
[2024-07-11 01:19] LABS: Appearance, Urine Turbid (Clear); Color, Urine Yellow (P-Yellow)
[2024-07-11 01:22] LABS: Bacteria Many /hpf; Squamous Epithelial Cells Rare /hpf (Few); White Blood Cells, Urine TNTC /hpf (0-5)
--- NOTE | 2024-07-11 03:17 | NUR ---
SHIFT SUMMARY PATIENT HAS BEEN SLEEPING INTERMITTANTLY BETWEEN NURSING CARE SINCE BEING ADMITTED TO THE MEDICAL FLOOR. HE HAS REQUESTED PAIN MEDICATION X1 ON THIS SHIFT AND WAS MEDICATION WITH 15 MG OF IV TORADOL ORDERED BY MD. PATIENT IS ORIENTED X4. HE HAS HIS CALL LIGHT WITHIN REACH. SAFETY PRECAUTIONS ARE BEING MAINTAINED.
[2024-07-11 03:33] VITALS: BP 108/56
[2024-07-11] MEDS ORDERED: Ketorolac Tromethamine 15mg Vial IV PRN (04:00)
[2024-07-11 04:45] LABS: BASOPHILS ABSOLUTE AUTO 0.02 K/mm3 (0.00-0.23); BASOPHILS PERCENT AUTO 0 % (0-2); EOSINOPHILS ABSOLUTE AUTO 0.14 K/mm3 (0.00-0.68); EOSINOPHILS PERCENT AUTO 2 % (0-6); Hematocrit 31.2 % (37.0-53.0); Hemoglobin 10.2 g/dL (13.5-17.5); IMMATURE GRAN ABSOLUTE AUTO 0.03 K/mm3 (0.00-0.10); IMMATURE GRAN PERCENT AUTO 1 % (0-1); LYMPHOCYTES ABSOLUTE AUTO 1.07 K/mm3 (0.84-5.20); LYMPHOCYTES PERCENT AUTO 17 % (21-46); MONOCYTES ABSOLUTE AUTO 0.96 K/mm3 (0.16-1.47); MONOCYTES PERCENT AUTO 15 % (4-13); Mean Corpuscular HGB 28.3 pg (26.0-34.0); Mean Corpuscular HGB Conc 32.7 g/dL (31.5-36.5); Mean Corpuscular Volume 87 fL (80-100); Mean Platelet Volume 11.5 fL (9.1-12.4); NEUTROPHILS ABSOLUTE AUTO 4.17 K/mm3 (1.96-9.15); NEUTROPHILS PERCENT AUTO 65 % (41-73); Platelet Count 133 K/mm3 (150-400); RDW Coefficient Variation 18.6 % (11.7-14.2); RDW Standard Deviation 59.6 fL (35.1-46.3); White Blood Cell Count 6.39 K/mm3 (4.00-11.30)
[2024-07-11 05:10] LABS: Albumin/Globulin Ratio 0.8 (0.8-1.8); Bilirubin, Total 0.5 mg/dL (0.1-1.0); Bun/Creatinine Ratio 38.2 (12.0-20.0); Globulin, Blood 3.6 g/dL (2.2-4.0); Potassium, Blood 3.8 mmol/L (3.5-5.5); Total Protein, Blood 6.6 g/dL (6.4-8.2)
[2024-07-11] MEDS ORDERED: Omeprazole 20 MG CapCR PO SCH (06:00)
[2024-07-11] MEDS ORDERED: Insulin Human Lispro 100 Units/ML 3ML Syringe SC SCH (07:30)
[2024-07-11 08:17] VITALS: BP 122/68
[2024-07-11] MEDS ORDERED: OxyCODONE HCL 5 MG TAB PO PRN (08:45)
[2024-07-11] MEDS ORDERED: Heparin Sodium,Porcine 5,000 UNIT/0.5 ML SDV SC SCH (09:00)
[2024-07-11] MEDS ORDERED: LevoFLOXacin 500MG/D5W 100ML 100 ML IV SCH (09:00)
[2024-07-11] MEDS ORDERED: Docusate Sodium 100 MG Cap PO SCH (09:00)
[2024-07-11] MEDS ORDERED: Gabapentin 300 MG Cap PO SCH (09:00)
[2024-07-11] MEDS ORDERED: Lactobacil 2-S.Thermo-Bifido 1 1 Cap PO SCH (09:00)
[2024-07-11 13:59] LABS: Chlamydia Trachomatis Urine NOT DETECTED (NOT DETECT); Neisseria Gonorrhoea Urine NOT DETECTED (NOT DETECT)
[2024-07-11] MEDS ORDERED: Aspirin 81 MG Chew PO SCH (14:00)
[2024-07-11] MEDS ORDERED: Furosemide 20 MG Tab PO PRN (14:05)
[2024-07-11 14:13] VITALS: BP 133/72
[2024-07-11] MEDS ORDERED: Empagliflozin 25 MG TAB PO SCH (15:00)
[2024-07-11] MEDS ORDERED: Lisinopril 20 MG Tab PO SCH (15:00)
[2024-07-11] MEDS ORDERED: NS 250 ML IV PRN (15:35)
[2024-07-11] MEDS ORDERED: Misc. Inpatient Respiratory Med INH SCH (16:45)
[2024-07-11] MEDS ORDERED: MetFORMIN HCl 500 mg PO SCH (17:00)
[2024-07-11 17:43] VITALS: BP 120/68
[2024-07-11] MEDS ORDERED: CefTRIAXone Sodium 1,000 MG in NS 100 ML IV SCH (18:00)
--- NOTE | 2024-07-11 19:44 | NUR ---
SHIFT SUMMARY PT A&OX4. PT ADMITTED DUE TO ACUTE EPIDIDYMITIS OF THE TESTICLES. PT REPORTS PAIN. PAIN MANAGED PER EMAR WITH 10MG OF OXY AND TORADOL. PT IS SBA WITH WALKER. PT EATS ADEQUATE. PT DOESNT WEAR O2 AT BASE. PT ON 2L OF O2. VSS. SPO2 IS WAS 87% WITHOUT O2 AND WITH O2. PT WEARS CPAP AT NIGHT AND GETS RESPIRATORY TREATMENTS. REPORTS NO SOB AND CHEST PAIN. PT BLOOD SUGARS ARE MONITORED ACHS AND CORRECTED PER SLIDING SCALE. PLAN IS TO CONT MANAGE PAIN AND IV ANTIBIOTICS PT IN BED, BED IN LOWEST POSITION, CALL LIGHT IN REACH.
[2024-07-11 20:08] VITALS: BP 132/70
[2024-07-11] MEDS ORDERED: Insulin Glargine-Yfgn 100 Unit/mL 3 ML SYR SC SCH (21:00)
[2024-07-11] MEDS ORDERED: Metoprolol Tartrate 25 MG Tab PO SCH (21:00)
[2024-07-11] MEDS ORDERED: Rosuvastatin Calcium 10 MG Tab PO SCH (21:00)
--- NOTE | 2024-07-12 03:09 | NUR ---
SHIFT SUMMARY PATIENT HAS BEEN SLEEPING INTERMITTANTLY THROUGHOUT THE NIGHT. HE HAS BEEN MEDICATED FOR PAIN WITH 10 MG OF OXYCODONE. PATIENT HAS HIS C PAP ON AND ALSO HAS A CONTINUOUS PULSE OX IN PLACE. VITAL SIGNS ARE STABLE. PATIENT IS ORIENTED X4. HE HAS HIS CALL LIGHT WITHIN REACH. SAFETY PRECAUTIONA ARE BEING MAINTAINED.
[2024-07-12 05:39] VITALS: BP 114/63
[2024-07-12 08:08] VITALS: BP 106/72
[2024-07-12] MEDS ORDERED: LevoFLOXacin 500 MG Tab PO SCH ×2 (09:00→11:00)
[2024-07-12] MEDS ORDERED: Multivitamins/Minerals TAB PO SCH (09:00)
[2024-07-12 16:34] VITALS: BP 106/63
--- NOTE | 2024-07-12 17:26 | NUR ---
RINA ADMITTED FOR ACUTE EPIDYDIMITIS. A&O X4. IV ACCESS TO LEFT FORE ARM. CPAP AT NIGHT, WITH 2LPM OXYGEN BLEED IN FOR OBSTRUCTIVE SLEEP APNEA. CONTINENT. SKIN: RED SKIN ON SCROTUM. WHEN SLEEPING OR RESTING, PT RATES SCROTAL PAIN AT 4/10. UPON STANDING, PAIN INCREASES TO 8-9/10. PRN MEDICATIONS GIVEN INCLUDE 10MG OXYCODONE. ON CONTINUOUS PULSE OX WITH CPAP USE. PT SHOWERED TODAY WITH ASSISTANCE FROM . GOOD APPETITE.
[2024-07-12 19:22] VITALS: BP 111/67
[2024-07-13 05:13] VITALS: BP 111/64
[2024-07-13 07:42] VITALS: BP 107/63
[2024-07-13] MEDS ORDERED: LEVFLO500 PO (14:09)
[2024-07-13] MEDS ORDERED: VISBIOME 112.51 EACH PO (14:09)
[2024-07-13] MEDS ORDERED: OXAYDO5 M1 PO (14:11)
--- NOTE | 2024-07-13 17:04 | NUR ---
uneventful day for pt. pt dc instructions given. pt understood instructions. iv dced. pt dced
[2024-07-18] MEDS ORDERED: SEMAGLUTIDE 8 MG/3 ML SC SCH (09:00)
== END 2024-07-13 14:33 | disposition home or self-care (01) | DRG 728 ==
LOC: ER 16:26 → ERHOLD 16:27 → MEDS 16:27
PROVIDERS: Emergency Medicine; Nurse Practitioner Acute Care; ADMIT Internal Medicine
DX: N45.1 Epididymitis (principal); N39.0 Urinary tract infection, site not specified; K21.9 Gastro-esophageal reflux disease without esophagitis; N40.0 Benign prostatic hyperplasia without lower urinary tract symptoms; I10 Essential (primary) hypertension; E11.40 Type 2 diabetes mellitus with diabetic neuropathy, unspecified; J44.9 Chronic obstructive pulmonary disease, unspecified; I45.10 Unspecified right bundle-branch block; E66.01 Morbid (severe) obesity due to excess calories; G47.33 Obstructive sleep apnea (adult) (pediatric); B96.89 Other specified bacterial agents as the cause of diseases classified elsewhere; Z87.438 Personal history of other diseases of male genital organs; Z87.19 Personal history of other diseases of the digestive system; Z79.51 Long term (current) use of inhaled steroids; Z79.82 Long term (current) use of aspirin; Z79.899 Other long term (current) drug therapy; Z79.4 Long term (current) use of insulin; Z79.52 Long term (current) use of systemic steroids; Z79.811 Long term (current) use of aromatase inhibitors; Z79.84 Long term (current) use of oral hypoglycemic drugs; Z87.891 Personal history of nicotine dependence; Z99.89 Dependence on other enabling machines and devices; Z68.29 Body mass index [BMI] 29.0-29.9, adult
CPT/HCPCS: 36415; 76870; 80053; 81001; 82947; 83605; 85025; 86592; 87077; 87086; 87186; 87491; 87591; 93005; 93010; 94640; 94664; 94762; 96361; 96365; 96372; 96374; 96375; 96376; 99285-25; A9270; G0378; J0696; J1644; J1815; J1885; J1956; J7050; J7120

== ENCOUNTER 2024-07-15 13:56 | Inpatient (IN) | payer BC, MEDICARE ==
[~2024-07-15] VITALS: Ht 172.7 cm; Wt 88.5 kg
[~2024-07-15 13:56] MED LIST changes: +LEVFLO500 PO; +OXAYDO5 M1 PO; +VISBIOME 112.51 EACH PO
[2024-07-15] MEDS ORDERED: Lidocaine 2% Jelly Uro-Jet UR ONE (15:05)
[2024-07-15 15:09] LABS: BASOPHILS ABSOLUTE AUTO 0.02 K/mm3 (0.00-0.23); BASOPHILS PERCENT AUTO 0 % (0-2); EOSINOPHILS ABSOLUTE AUTO 0.23 K/mm3 (0.00-0.68); EOSINOPHILS PERCENT AUTO 2 % (0-6); Hematocrit 33.6 % (37.0-53.0); Hemoglobin 10.8 g/dL (13.5-17.5); IMMATURE GRAN ABSOLUTE AUTO 0.06 K/mm3 (0.00-0.10); IMMATURE GRAN PERCENT AUTO 1 % (0-1); LYMPHOCYTES ABSOLUTE AUTO 0.93 K/mm3 (0.84-5.20); LYMPHOCYTES PERCENT AUTO 10 % (21-46); MONOCYTES ABSOLUTE AUTO 0.88 K/mm3 (0.16-1.47); MONOCYTES PERCENT AUTO 9 % (4-13); Mean Corpuscular HGB Conc 32.1 g/dL (31.5-36.5); Mean Corpuscular Volume 87 fL (80-100); Mean Platelet Volume 11.1 fL (9.1-12.4); NEUTROPHILS ABSOLUTE AUTO 7.36 K/mm3 (1.96-9.15); NEUTROPHILS PERCENT AUTO 78 % (41-73); Platelet Count 194 K/mm3 (150-400); RDW Coefficient Variation 16.8 % (11.7-14.2); RDW Standard Deviation 53.8 fL (35.1-46.3); Red Blood Cell Count 3.86 M/mm3 (4.30-5.90); White Blood Cell Count 9.48 K/mm3 (4.00-11.30)
[2024-07-15 15:53] LABS: Albumin, Blood 3.2 g/dL (3.4-5.0); Albumin/Globulin Ratio 0.7 (0.8-1.8); Bilirubin, Total 0.4 mg/dL (0.1-1.0); Bun/Creatinine Ratio 41.6 (12.0-20.0); Calcium, Blood 9.5 mg/dL (8.5-10.1); Creatinine, Blood 1.13 mg/dL (0.60-1.20); Globulin, Blood 4.3 g/dL (2.2-4.0); Potassium, Blood 4.9 mmol/L (3.5-5.5); Total Protein, Blood 7.5 g/dL (6.4-8.2)
[2024-07-15] MEDS ORDERED: CefTRIAXone Sodium 2,000 MG in NS 100 ML IV ONE (17:15)
[2024-07-15] MEDS ORDERED: Morphine Sulfate 4 MG/1 ML Injection IV ONE ×2 (17:55→18:35)
[2024-07-15] MEDS ORDERED: HYDROmorphone HCl/Pf 1MG SYR IV ONE ×2 (19:10→20:05)
[2024-07-15] MEDS ORDERED: LORazepam 2 MG/ML 1ML Injection IV ONE (20:25)
[2024-07-15 20:38] LABS: Bun/Creatinine Ratio 38.1 (12.0-20.0); Creatinine, Blood 1.18 mg/dL (0.60-1.20); Potassium, Blood 4.7 mmol/L (3.5-5.5)
[2024-07-15] MEDS ORDERED: LevoFLOXacin 500MG/D5W 100ML 100 ML IV ONE (22:15)
[2024-07-15 22:20] LABS: Source, Urine Foley catheter
[2024-07-15 22:26] LABS: Bilirubin, Urine Neg (Neg); Blood, Urine 5+ (Neg); Glucose Qualitative, Urine 4+ (Neg); Ketones, Urine Neg (Neg); Leukocyte Esterase, Urine 3+ (Neg); Nitrite, Urine Neg (Neg); Protein, Urine 3+ (Neg); Urobilinogen, Urine NORM (Normal)
[2024-07-15 22:38] LABS: Appearance, Urine Turbid (Clear); Color, Urine Yellow (P-Yellow)
[2024-07-15 22:41] LABS: Bacteria Many /hpf; Squamous Epithelial Cells Few /hpf (Few); White Blood Cells, Urine TNTC /hpf (0-5)
[2024-07-15] MEDS ORDERED: Acetaminophen 325 MG TABLET PO PRN (22:45)
[2024-07-15] MEDS ORDERED: HYDROCODONE-AC1 EA19 PO (22:50)
[2024-07-15] MEDS ORDERED: OxyCODONE HCL 5 MG TAB PO PRN (22:55)
[2024-07-15] MEDS ORDERED: Furosemide 20 MG Tab PO PRN (22:55)
[2024-07-15] MEDS ORDERED: Albuterol HFA200 ACT/6.7 GM INH INH PRN (23:30)
[2024-07-15] MEDS ORDERED: Ipratropium/Albuterol SulF 2.5-0.5MG/3 ML Amp INH SCH (23:35)
[2024-07-16 00:17] VITALS: BP 128/66
[2024-07-16] MEDS ORDERED: Ipratropium/Albuterol SulF 2.5-0.5MG/3 ML Amp INH SCH (00:50)
--- NOTE | 2024-07-16 04:37 | NUR ---
SHIFT SUMMARY ADMITTED FOR EPIDIDYMITIS. FULL CODE. SUPRAPUBIC CATHETER PLACED IN ER. FOUND TO HAVE A UTI. IV ANTIB RX ARE SCHEDULED. HE WILL FOLLOW UP OUTPT WITH [facility]. HE IS A&O X4. 1 ASSIST TO BSC. ADA DIET. ACHS CBG'S - LOW SS. ON 2 LPM O2, RA IS BASELINE. HE USES A CPAP @ HS. HX OF BPH, TURP, RECENT ADMIT FOR THE SAME DIAGNOSIS.
[2024-07-16 04:57] VITALS: BP 116/64
[2024-07-16 05:17] LABS: BASOPHILS ABSOLUTE AUTO 0.03 K/mm3 (0.00-0.23); BASOPHILS PERCENT AUTO 0 % (0-2); EOSINOPHILS PERCENT AUTO 2 % (0-6); Hematocrit 31.3 % (37.0-53.0); Hemoglobin 10.2 g/dL (13.5-17.5); IMMATURE GRAN ABSOLUTE AUTO 0.06 K/mm3 (0.00-0.10); IMMATURE GRAN PERCENT AUTO 1 % (0-1); LYMPHOCYTES ABSOLUTE AUTO 0.98 K/mm3 (0.84-5.20); LYMPHOCYTES PERCENT AUTO 11 % (21-46); MONOCYTES ABSOLUTE AUTO 0.83 K/mm3 (0.16-1.47); MONOCYTES PERCENT AUTO 9 % (4-13); Mean Corpuscular HGB Conc 32.6 g/dL (31.5-36.5); Mean Corpuscular Volume 86 fL (80-100); Mean Platelet Volume 11.1 fL (9.1-12.4); NEUTROPHILS PERCENT AUTO 77 % (41-73); Platelet Count 184 K/mm3 (150-400); RDW Coefficient Variation 16.7 % (11.7-14.2); RDW Standard Deviation 53.1 fL (35.1-46.3); Red Blood Cell Count 3.64 M/mm3 (4.30-5.90)
[2024-07-16 05:49] LABS: Albumin, Blood 2.8 g/dL (3.4-5.0); Albumin/Globulin Ratio 0.7 (0.8-1.8); Bilirubin, Total 0.3 mg/dL (0.1-1.0); Bun/Creatinine Ratio 43.1 (12.0-20.0); Calcium, Blood 9.4 mg/dL (8.5-10.1); Creatinine, Blood 1.09 mg/dL (0.60-1.20); Magnesium, Blood 2.1 mg/dL (1.6-2.4); Potassium, Blood 4.4 mmol/L (3.5-5.5); Total Protein, Blood 6.8 g/dL (6.4-8.2)
[2024-07-16] MEDS ORDERED: Omeprazole 20 MG CapCR PO SCH (06:00)
[2024-07-16] MEDS ORDERED: Insulin Human Lispro 100 Units/ML 3ML Syringe SC SCH (07:30)
[2024-07-16 07:36] VITALS: BP 100/55
[2024-07-16] MEDS ORDERED: Gabapentin 300 MG Cap PO SCH (09:00)
[2024-07-16] MEDS ORDERED: Empagliflozin 25 MG TAB PO SCH (09:00)
[2024-07-16] MEDS ORDERED: Lactobacil 2-S.Thermo-Bifido 1 1 Cap PO SCH (09:00)
[2024-07-16] MEDS ORDERED: Lisinopril 20 MG Tab PO SCH (09:00)
[2024-07-16] MEDS ORDERED: Metoprolol Tartrate 25 MG Tab PO SCH (09:00)
[2024-07-16] MEDS ORDERED: Aspirin 81 MG Chew PO SCH (09:00)
[2024-07-16] MEDS ORDERED: LevoFLOXacin 500MG/D5W 100ML 100 ML IV SCH (09:00)
[2024-07-16] MEDS ORDERED: Docusate Sodium 100 MG Cap PO SCH (09:00)
[2024-07-16] MEDS ORDERED: Docosahexanoic Acid/EPA 1,000 MG CAP PO SCH (09:00)
[2024-07-16] MEDS ORDERED: Multivitamins/Minerals TAB PO SCH (09:00)
[2024-07-16] MEDS ORDERED: NS 250 ML IV PRN (09:20)
[2024-07-16 15:23] VITALS: BP 125/62
--- NOTE | 2024-07-16 18:26 | NUR ---
SHIFT SUMMARY: PATIENT A/OX4, PLEASANT AND COOPERATIVE c CARE. PATIENT DENIES CP/PRESSURE, SOB, N/V AND DIZZINESS. PATIENT ON RA, BUT USES CPAP AT HS c 4L O2 BLEED IN. PATIENT HAS SUPRAPUBIC CATH TO R LOWER ABDOMEN AND WAS PLACED IN ED, PATENT DRAINING CLEAR YELLOW URINE TO GRAVITY. PATIENT REPORTS PAIN 4/10 TO R LOWER ABDOMEN, MEDICATED FOR PAIN PER EMAR c GOOD EFFECT. PATIENT RECEIVED SCHEDULED MEDS PER EMAR. VITAL SIGNS REVIEWED. PATIENT SPOUSE VISITED TODAY, UPDATED c PLAN OF CARE, VERBALIZED UNDERSTANDING AND NO FURTHER QUESTIONS. PATIENT HAS GREAT APPETITE, NO COMPLAINTS OR DENIES NEW CONCERNED THIS SHIFT. CALL LIGHT IN REACH.
[2024-07-16 19:42] VITALS: BP 137/68
[2024-07-16] MEDS ORDERED: Insulin Glargine-Yfgn 100 Unit/mL 3 ML SYR SC SCH (21:00)
[2024-07-16] MEDS ORDERED: Rosuvastatin Calcium 10 MG Tab PO SCH (21:00)
[2024-07-16] MEDS ORDERED: FentaNYL Citrate 50 MCG/ML 2 ML Injection IV PRN (21:45)
--- NOTE | 2024-07-17 05:18 | NUR ---
SHIFT SUMMARY: PT IS ALERT AND ORIENTED. PT IS CALM AND COOPERATIVE WITH CARE. PT CALLS APPROPRIATELY. PT IS INDEPENDENT IN THE ROOM. PT REPORTS PAIN IN HIS GROIN AREA ON SEVERAL OCCASIONS, MEDICATING PER EMAR. PT DENIES NAUSEA, VOMITING, AND SOB. PT ON RA DURING WAKING HOURS, CPAP W/ 4L BLEED-IN AT BEDTIME. POSS DC TODAY. PT TO FOLLOW UP WITH UROLOGY OUTPT. NO ACUTE CHANGES OR COMPLICATIONS.
[2024-07-17 05:20] VITALS: BP 119/63
[2024-07-17 07:55] VITALS: BP 116/64
[2024-07-17 08:24] LABS: BASOPHILS ABSOLUTE AUTO 0.03 K/mm3 (0.00-0.23); BASOPHILS PERCENT AUTO 0 % (0-2); EOSINOPHILS ABSOLUTE AUTO 0.22 K/mm3 (0.00-0.68); EOSINOPHILS PERCENT AUTO 2 % (0-6); Hematocrit 34.9 % (37.0-53.0); Hemoglobin 11.1 g/dL (13.5-17.5); IMMATURE GRAN ABSOLUTE AUTO 0.13 K/mm3 (0.00-0.10); IMMATURE GRAN PERCENT AUTO 1 % (0-1); LYMPHOCYTES ABSOLUTE AUTO 1.31 K/mm3 (0.84-5.20); LYMPHOCYTES PERCENT AUTO 13 % (21-46); MONOCYTES ABSOLUTE AUTO 0.89 K/mm3 (0.16-1.47); MONOCYTES PERCENT AUTO 9 % (4-13); Mean Corpuscular HGB Conc 31.8 g/dL (31.5-36.5); Mean Corpuscular Volume 88 fL (80-100); Mean Platelet Volume 11.2 fL (9.1-12.4); NEUTROPHILS ABSOLUTE AUTO 7.78 K/mm3 (1.96-9.15); NEUTROPHILS PERCENT AUTO 75 % (41-73); Platelet Count 203 K/mm3 (150-400); RDW Coefficient Variation 16.5 % (11.7-14.2); RDW Standard Deviation 53.9 fL (35.1-46.3); Red Blood Cell Count 3.96 M/mm3 (4.30-5.90); White Blood Cell Count 10.36 K/mm3 (4.00-11.30)
[2024-07-17 09:07] LABS: Bun/Creatinine Ratio 35.1 (12.0-20.0); Calcium, Blood 10.1 mg/dL (8.5-10.1); Creatinine, Blood 0.71 mg/dL (0.60-1.20); Potassium, Blood 4.4 mmol/L (3.5-5.5)
[2024-07-17 16:01] VITALS: BP 126/61
--- NOTE | 2024-07-17 16:10 | NUR ---
SHIFT SUMMARY: PATIENT A/OX4, PLEASANT AND COOPERATIVE c CARE. PATIENT REPORTS PAIN TO LOWER ABDOMEN, MEDICATED FOR PAIN PER EMAR c GOOD EFFECT. PATIENT DENIES CP/PRESSURE, SOB, N/V, AND DIZZINESS. PATIENT HAD REPEAT SCROTUM ULTRASOUND c RESULT. DR. PUGA SPOKE TO PATIENT AND SPOUSE REGARDING RESULT AND PLAN OF CARE. PATIENT AND SPOUSE VERBALIZED UNDERSTANDING AND NO FURTHER QUESTIONS. PATIENT SUPRAPUBIC CATH TO R LOWER ABDOMEN, PATENT DRAINING CLEAR URINE TO GRAVITY. PATIENT SHOWERED c MINIMAL LEAD OPERATOR FROM SPOUSE, LINEN CHANGED BY THIS RN. PATIENT AMBULATED IN HALLWAY X2 c FWW, TOLERATED WELL. PATIENT HAS GREAT APPETITE. VITAL SIGNS REVIEWED. CALL LIGHT IN REACH.
[2024-07-17 19:29] VITALS: BP 108/58
[2024-07-18 03:22] VITALS: BP 124/70
--- NOTE | 2024-07-18 03:50 | NUR ---
SHIFT SUMMARY: PT IS ALERT AND ORIENTED CAN MAKE ALL NEEDS KNOWN, NO TELE AT THIS TIME, ON ROOM AIR USES CPAP AT NOC WITH 4L BLEED IN, SUPRAPUBIC CATH IN PLACE AND DRAINIG, PT CO PAIN IN ABD X2 PRN GIVEN AND EFFECTIVE, SMALL AMMOUNTS OF SEDIMENT NOTED THIS SHIFT URINE IS MALODOROUS HAZY AND YELLOW, SKIN IS INTACT BESIDES NEW SITE, SBA FOR MOBILITY WALKS INDEPENDANT OF DEVICES, OUT PT VS TRANSFER FOR URINARY ISSUE RESOLVE, PT HAS CALL LIGHT AND FREQUENTLY USED ITEMS WITH N REACH AT THIS TIME
[2024-07-18 07:15] VITALS: BP 110/61
[2024-07-18 10:23] LABS: BASOPHILS ABSOLUTE AUTO 0.04 K/mm3 (0.00-0.23); BASOPHILS PERCENT AUTO 0 % (0-2); EOSINOPHILS ABSOLUTE AUTO 0.26 K/mm3 (0.00-0.68); EOSINOPHILS PERCENT AUTO 2 % (0-6); Hematocrit 35.8 % (37.0-53.0); Hemoglobin 11.1 g/dL (13.5-17.5); IMMATURE GRAN PERCENT AUTO 1 % (0-1); LYMPHOCYTES ABSOLUTE AUTO 1.14 K/mm3 (0.84-5.20); LYMPHOCYTES PERCENT AUTO 10 % (21-46); MONOCYTES PERCENT AUTO 7 % (4-13); Mean Corpuscular HGB 27.7 pg (26.0-34.0); Mean Corpuscular Volume 89 fL (80-100); Mean Platelet Volume 11.2 fL (9.1-12.4); NEUTROPHILS ABSOLUTE AUTO 8.91 K/mm3 (1.96-9.15); NEUTROPHILS PERCENT AUTO 79 % (41-73); Platelet Count 219 K/mm3 (150-400); RDW Coefficient Variation 16.4 % (11.7-14.2); RDW Standard Deviation 53.9 fL (35.1-46.3); Red Blood Cell Count 4.01 M/mm3 (4.30-5.90); White Blood Cell Count 11.25 K/mm3 (4.00-11.30)
[2024-07-18 10:42] LABS: Bun/Creatinine Ratio 34.9 (12.0-20.0); Calcium, Blood 9.8 mg/dL (8.5-10.1); Creatinine, Blood 0.69 mg/dL (0.60-1.20); Potassium, Blood 4.2 mmol/L (3.5-5.5)
[2024-07-18 14:25] VITALS: BP 113/66
[2024-07-18 14:55] VITALS: BP 113/66
[2024-07-18] MEDS ORDERED: Clindamycin 900mg in D5W 50ML 50 ML IV SCH (15:00)
--- NOTE | 2024-07-18 15:56 | NUR ---
SHIFT/DISCHARGE SUMMARY: PATIENT HAS HAD NO NEW CHANGES THIS SHIFT. PATIENT A/OX4, PLEASANT AND COOPERATIVE c CARE. PATIENT CONTINUES TO REPORTS PAIN TO LOWER ABDOMEN, MEDICATED FOR PAIN PER EMAR c GOOD EFFECT. PATIENT HAS GREAT APPETITE, SUPRAPUBIC CATH, PATENT DRAINING LIGHT YELLOW c SCANT SEDIMENTS IN URINE. PATIENT SAT UP IN CHAIR FOR BREAKFAST AND LUNCH, TOLERATED WELL. PATIENT RECEIVED IV ABX/SCHEDULED MEDS PER EMAR. VITAL SIGNS REVIEWED. DR. PUGA SPOKE TO PATIENT AND SPOUSE REGARDING PLAN OF CARE, POSSIBLE SURGERY TO SCROTAL ABSCESS AND NEEDING TO BE TRANSFERRED TO [facility]. PATIENT AND SPOUSE AGREED THEY VERBALIZED UNDERSTANDING. PATIENT COBRA TRANSFER TO [facility] IN [place] FOR POSSIBLE SURGERY TO SCROTAL ABSCESS c ADMITTING DR. DAVID WEAVER. TR GIVEN TO CHAD CORBETT AT 1516. COBRA PACKET GIVEN TO RIDES ASSOCIATE. ALL PERSONAL BELONGINGS WERE TRANSFERRED c PATIENT. PATIENT LEFT THE ROOM AT 1552 TRANSPORTED VIA GURNEY TO [facility].
== END 2024-07-18 15:52 | disposition short-term general hospital (02) | DRG 728 ==
LOC: ER 13:56 → MEDS 22:42 → ERHOLD 22:42 → MEDS 07-16 00:05
PROVIDERS: Emergency Medicine; Family Medicine; Physician Assistant; ADMIT Student in an Organized Health Care Education/Training Program
PROC: 0T9B30Z Drainage of Bladder with Drainage Device, Percutaneous Approach (ICD-10-PCS; principal; 2024-07-15)
DX: N45.3 Epididymo-orchitis (principal); I10 Essential (primary) hypertension; G47.33 Obstructive sleep apnea (adult) (pediatric); J44.9 Chronic obstructive pulmonary disease, unspecified; E66.813 Obesity, class 3; K21.9 Gastro-esophageal reflux disease without esophagitis; N35.919 Unspecified urethral stricture, male, unspecified site; E11.40 Type 2 diabetes mellitus with diabetic neuropathy, unspecified; N43.3 Hydrocele, unspecified; R33.8 Other retention of urine; E11.65 Type 2 diabetes mellitus with hyperglycemia; D64.9 Anemia, unspecified; N50.3 Cyst of epididymis; Z79.84 Long term (current) use of oral hypoglycemic drugs; Z79.4 Long term (current) use of insulin; Z79.85 Long-term (current) use of injectable non-insulin antidiabetic drugs; Z79.82 Long term (current) use of aspirin; Z87.891 Personal history of nicotine dependence; Z68.29 Body mass index [BMI] 29.0-29.9, adult
CPT/HCPCS: 36415; 51102; 51798; 72193; 76870; 80048; 80053; 81001; 82947; 83036; 83735; 85025; 87086; 94640; 94760; 96365; 96375; 96376; 99285-25; A9270; C2627; J0696; J1171; J1815; J1956; J2060; J2270; J3010; J7050; Q9967